=== PATIENT | male | born 1935 | race Caucasian/White ===

== ENCOUNTER 2022-04-26 15:12 | Inpatient (IN) ==
[2022-04-26] MEDS ORDERED: HYDROmorphone 1 MG/1 ML SYRINGE IV STA (15:22)
[2022-04-26] MEDS ORDERED: SODIUM CHLORIDE 0.9% 500 ML IV STA (15:22)
[2022-04-26] MEDS ORDERED: ONDANSETRON 4 MG/2 ML VIAL IV STA (15:22)
[2022-04-26 16:15] LABS: Albumin 3.8 G/DL (3.4-5.0); Bilirubin,Total 0.9 MG/DL (0.20-1.00); Calcium 8.8 MG/DL (8.5-10.1); Osmolality,Calculated 291.7 MOS/KG (273-304); Total Protein 6.8 G/DL (6.4-8.2)
[2022-04-26 16:20] LABS: INR 2.1; Partial Thromboplastin Time 26.5 SECS (23.7-32.9)
[2022-04-26 16:27] LABS: Basophils % 0.3 % (0.0-0.8); Eosinophils # 0.1 10*3/uL (0.0-0.87); Eosinophils % 1.7 % (0.00-10.9); Hematocrit 40.5 VOL% (42.0-52.0); Hemoglobin 13.2 GM/DL (14.0-18.0); Immature Granulocytes % 0.7 %; Immature Granulocytes Absolute 0.05 #; Lymphocytes # 1.1 10*3/uL (1.4-4.0); Lymphocytes % 14.4 % (21.2-54.2); Mean Corpuscular HGB Conc 32.6 GM/DL (32-36); Mean Corpuscular Volume 94.8 FL (87-102); Mean Platelet Volume 9.6 FL (9.6-12.0); Monocytes # 0.6 10*3/uL (0.11-0.8); Monocytes % 7.7 % (1.7-12.7); Neutrophils % 75.2 % (38.7-73.9); Platelet Count 155 T/CUMM (130-400); Red Blood Count 4.27 MC/CUMM (3.8-5.5); Red Cell Distribution Width 14.4 % (9.3-17.3); White Blood Count 7.58 T/CUMM (4-12)
[2022-04-26] MEDS ORDERED: ONDANSETRON 4 MG/2 ML VIAL IV PRN (16:46)
[2022-04-26] MEDS ORDERED: MORPHINE 2 MG/1 ML SYRINGE IV PRN (16:46)
[2022-04-26] MEDS ORDERED: DEXTROSE 10% 250 ML BAG IV PRN (16:46)
[2022-04-26] MEDS ORDERED: GLUCAGON 1 MG VIAL IM PRN (16:46)
[2022-04-26] MEDS ORDERED: ACETAMINOPHEN 325 MG TABLET PO PRN (16:46)
[2022-04-26] MEDS ORDERED: PHYTONADIONE 10 MG/1 ML AMP SUBCUT ONE (17:24)
[2022-04-26 18:24] LABS: Bilirubin,Urine Negative (Negative); Blood, Urine Trace mg/dL (Negative); Glucose,Urine (UA) 500 mg/dL (Negative); Ketones,Urine Negative (Negative); Nitrite,Urine Negative (Negative); Protein,Urine 30 mg/dL (Negative); Urine Appearance Clear (Clear); Urine Color Yellow (Yellow); Urine Urobilinogen 0.2 eU/dL (<2.0)
[2022-04-26 18:25] LABS: Mucus,Urine Occasional /LPF (Occasional); RBC,Urine 1 /HPF (0-4); Squamous Epithelial Cell,Urine Occasional /HPF (0-10)
[2022-04-26 18:55] LABS: Barbiturates Screen,Urine Negative (Negative); Benzodiazepines Screen,Urine Negative (Negative); Cannabinoid Screen,Urine Negative (Negative); Opiate Screen,Urine Positive (Negative); Phencyclidine Screen,Urine Negative (Negative)
[2022-04-26] MEDS: SODIUM CHLORIDE 0.9% 1,000 ML IV SCH (18:57)
[2022-04-27] MEDS: INSULIN LISPRO 100 UNIT/ML SUBCUT SCH ×5 (04:14→20:58)
[2022-04-27 04:57] LABS: Basophils % 0.3 % (0.0-0.8); Eosinophils # 0.2 10*3/uL (0.0-0.87); Eosinophils % 1.8 % (0.00-10.9); Hematocrit 38.1 VOL% (42.0-52.0); Hemoglobin 12.6 GM/DL (14.0-18.0); Immature Granulocytes % 0.4 %; Immature Granulocytes Absolute 0.04 #; Lymphocytes # 1.4 10*3/uL (1.4-4.0); Lymphocytes % 14.7 % (21.2-54.2); Mean Corpuscular HGB Conc 33.1 GM/DL (32-36); Mean Corpuscular Volume 95.5 FL (87-102); Mean Platelet Volume 10.2 FL (9.6-12.0); Monocytes # 0.9 10*3/uL (0.11-0.8); Monocytes % 9.9 % (1.7-12.7); Neutrophils % 72.9 % (38.7-73.9); Platelet Count 152 T/CUMM (130-400); Red Blood Count 3.99 MC/CUMM (3.8-5.5); Red Cell Distribution Width 14.3 % (9.3-17.3); White Blood Count 9.21 T/CUMM (4-12)
[2022-04-27 05:02] LABS: INR 1.7; PT Patient Result 17.6 SECS (10.1-12.1)
[2022-04-27 05:28] LABS: Albumin 3.2 G/DL (3.4-5.0); Bilirubin,Total 1.3 MG/DL (0.20-1.00); Calcium 8.1 MG/DL (8.5-10.1); Osmolality,Calculated 291.7 MOS/KG (273-304); Potassium 3.9 MMOL/L (3.5-5.1); Risk Ratio 2.29; Thyroid Stimulating Hormone 1.21 uIU/ml (0.358-3.74); Total Protein 5.7 G/DL (6.4-8.2); VLDL Cholesterol 14.6 MG/DL
[2022-04-27] MEDS ORDERED: ceFAZolin 2,000 MG/50 ML DUPLEX IV ONE (06:00)
[2022-04-27] MEDS: SODIUM CHLORIDE 0.9% 1,000 ML IV SCH ×2 (06:09→14:04)
[2022-04-27] MEDS ORDERED: ROCURONIUM 50 MG/5 ML VIAL IV ONE (09:06)
[2022-04-27] MEDS ORDERED: LIDOCAINE 2% 5 ML VIAL ONE (09:06)
[2022-04-27] MEDS ORDERED: ONDANSETRON 4 MG/2 ML VIAL ONE (09:06)
[2022-04-27] MEDS ORDERED: PHENYLEPHRINE 1 MG/10 ML SYRINGE IV ONE ×2 (09:06→10:29)
[2022-04-27] MEDS ORDERED: propofoL 200 MG/20 ML VIAL IV ONE (09:06)
[2022-04-27] MEDS ORDERED: MIDAZOLAM 2 MG/2 ML VIAL ONE (09:06)
[2022-04-27] MEDS ORDERED: fentaNYL 100 MCG/2 ML VIAL ONE (09:06)
[2022-04-27] MEDS ORDERED: SEVOFLURANE 1 UNIT/15 MINUTE INH ONE (09:06)
[2022-04-27] MEDS ORDERED: ROPIVACAINE 0.5% 30 ML VIAL ONE (09:14)
[2022-04-27] MEDS ORDERED: DEXAMETHASONE 4 MG/1 ML VIAL ONE (09:14)
[2022-04-27] MEDS ORDERED: SUCCINYLCHOLINE 200 MG/10 ML VIAL ONE (10:27)
[2022-04-27] MEDS ORDERED: BACITRACIN OINT 0.9 GM PACK TOP ONE (10:41)
[2022-04-27] MEDS ORDERED: LACTATED RINGERS 1,000 ML IV ONE (10:42)
[2022-04-27] MEDS ORDERED: MAGNESIUM HYDROXIDE SUSP 30 ML UDCUP PO PRN (10:56)
[2022-04-27] MEDS ORDERED: SODIUM CHLORIDE 0.9% 1,000 ML IV SCH (11:00)
[2022-04-27] MEDS: LACTATED RINGERS 1,000 ML IV SCH ×2 (13:56→21:10)
[2022-04-27] MEDS: allopurinoL 300 MG TABLET PO SCH (13:56)
[2022-04-27] MEDS: DAPAGLIFLOZIN 5 MG TABLET PO SCH (13:56)
[2022-04-27] MEDS: lisinopriL 10 MG TABLET PO SCH (13:56)
[2022-04-27] MEDS: ATORVASTATIN 40 MG TABLET PO SCH (13:56)
[2022-04-27] MEDS: ceFAZolin 2,000 MG/50 ML DUPLEX IV SCH (17:00)
[2022-04-27] MEDS: ASCORBIC ACID 500 MG TABLET PO SCH (20:58)
[2022-04-27] MEDS: DOCUSATE SODIUM 100 MG CAPSULE PO SCH (20:58)
[2022-04-28] MEDS: ceFAZolin 2,000 MG/50 ML DUPLEX IV SCH (00:18)
[2022-04-28 04:12] LABS: Basophils % 0.1 % (0.0-0.8); Eosinophils % 0.1 % (0.00-10.9); Hematocrit 38.6 VOL% (42.0-52.0); Hemoglobin 12.6 GM/DL (14.0-18.0); Immature Granulocytes % 0.9 %; Immature Granulocytes Absolute 0.13 #; Lymphocytes # 1.3 10*3/uL (1.4-4.0); Lymphocytes % 8.8 % (21.2-54.2); Mean Corpuscular HGB Conc 32.6 GM/DL (32-36); Mean Corpuscular Volume 95.8 FL (87-102); Mean Platelet Volume 10.1 FL (9.6-12.0); Monocytes # 1.3 10*3/uL (0.11-0.8); Monocytes % 8.7 % (1.7-12.7); Neutrophils % 81.4 % (38.7-73.9); Platelet Count 147 T/CUMM (130-400); Red Blood Count 4.03 MC/CUMM (3.8-5.5); Red Cell Distribution Width 14.2 % (9.3-17.3); White Blood Count 14.65 T/CUMM (4-12)
[2022-04-28 04:22] LABS: INR 1.3; PT Patient Result 13.9 SECS (10.1-12.1)
[2022-04-28 04:29] LABS: Calcium 8.4 MG/DL (8.5-10.1); Osmolality,Calculated 293.7 MOS/KG (273-304); Potassium 3.8 MMOL/L (3.5-5.1)
[2022-04-28] MEDS ORDERED: MAGNESIUM SULF RIDER 4 GM/100 ML PREMIX IV PRN (08:03)
[2022-04-28] MEDS ORDERED: MAGNESIUM SULF RIDER 2 GM/50 ML PREMIX IV PRN (08:03)
[2022-04-28] MEDS: INSULIN LISPRO 100 UNIT/ML SUBCUT SCH ×4 (08:57→20:39)
[2022-04-28] MEDS: allopurinoL 300 MG TABLET PO SCH ×2 (09:39→12:53)
[2022-04-28] MEDS: ASCORBIC ACID 500 MG TABLET PO SCH ×3 (09:39→20:36)
[2022-04-28] MEDS: lisinopriL 10 MG TABLET PO SCH ×2 (09:39→12:53)
[2022-04-28] MEDS: ATORVASTATIN 40 MG TABLET PO SCH ×2 (09:39→12:53)
[2022-04-28] MEDS: WARFARIN 7.5 MG TABLET PO SCH ×2 (09:39→12:53)
[2022-04-28] MEDS: DAPAGLIFLOZIN 5 MG TABLET PO SCH ×2 (09:39→12:53)
[2022-04-28] MEDS: DOCUSATE SODIUM 100 MG CAPSULE PO SCH ×3 (09:40→20:39)
[2022-04-28] MEDS ORDERED: VANCOMYCIN INJ 1,000 MG in SODIUM CHLORIDE 0.9% 250 ML IV ONE (10:16)
[2022-04-28] MEDS ORDERED: OLANZapine 10 MG VIAL IM ONE ×2 (10:17)
[2022-04-28] MEDS: OLANZapine 2.5 MG TABLET PO SCH (20:40)
[2022-04-28] MEDS ORDERED: LORazepam 2 MG/1 ML VIAL IV ONE (22:40)
[2022-04-29 05:15] LABS: Basophils % 0.3 % (0.0-0.8); Eosinophils # 0.4 10*3/uL (0.0-0.87); Eosinophils % 3.9 % (0.00-10.9); Hematocrit 35.6 VOL% (42.0-52.0); Hemoglobin 11.4 GM/DL (14.0-18.0); Immature Granulocytes % 0.6 %; Immature Granulocytes Absolute 0.06 #; Lymphocytes # 1.2 10*3/uL (1.4-4.0); Lymphocytes % 11.2 % (21.2-54.2); Mean Corpuscular Volume 95.7 FL (87-102); Mean Platelet Volume 9.7 FL (9.6-12.0); Monocytes # 1.1 10*3/uL (0.11-0.8); Platelet Count 146 T/CUMM (130-400); Red Blood Count 3.72 MC/CUMM (3.8-5.5); Red Cell Distribution Width 14.4 % (9.3-17.3); White Blood Count 10.72 T/CUMM (4-12)
[2022-04-29 05:30] LABS: Calcium 8.1 MG/DL (8.5-10.1); Osmolality,Calculated 295.4 MOS/KG (273-304); Potassium 3.7 MMOL/L (3.5-5.1)
[2022-04-29] MEDS: INSULIN LISPRO 100 UNIT/ML SUBCUT SCH ×4 (07:45→22:54)
[2022-04-29 08:57] LABS: PT Patient Result 11.2 SECS (10.1-12.1)
[2022-04-29] MEDS ORDERED: SODIUM CHLORIDE 0.45% 1,000 ML IV SCH (09:00)
[2022-04-29] MEDS: SODIUM CHLORIDE 0.45% 1,000 ML IV SCH (09:45)
[2022-04-29] MEDS: LACTATED RINGERS 1,000 ML IV SCH (12:35)
[2022-04-29] MEDS: DOCUSATE SODIUM 100 MG CAPSULE PO SCH ×2 (12:37→22:54)
[2022-04-29] MEDS: ATORVASTATIN 40 MG TABLET PO SCH (12:37)
[2022-04-29] MEDS: WARFARIN 7.5 MG TABLET PO SCH (12:37)
[2022-04-29] MEDS: DAPAGLIFLOZIN 5 MG TABLET PO SCH (12:37)
[2022-04-29] MEDS: allopurinoL 300 MG TABLET PO SCH (12:38)
[2022-04-29] MEDS: ASCORBIC ACID 500 MG TABLET PO SCH ×2 (12:38→22:54)
[2022-04-29] MEDS: lisinopriL 10 MG TABLET PO SCH (12:38)
[2022-04-29] MEDS: ENOXAPARIN 80 MG/0.8 ML SYRINGE SUBCUT SCH (13:55)
[2022-04-29] MEDS: OLANZapine 2.5 MG TABLET PO SCH (22:54)
[2022-04-30] MEDS: SODIUM CHLORIDE 0.45% 1,000 ML IV SCH ×3 (00:37→17:49)
[2022-04-30 04:48] LABS: Basophils % 0.4 % (0.0-0.8); Eosinophils # 0.4 10*3/uL (0.0-0.87); Eosinophils % 3.5 % (0.00-10.9); Hemoglobin 12.3 GM/DL (14.0-18.0); Immature Granulocytes % 0.4 %; Immature Granulocytes Absolute 0.04 #; Lymphocytes # 1.4 10*3/uL (1.4-4.0); Lymphocytes % 13.7 % (21.2-54.2); Mean Corpuscular HGB Conc 31.5 GM/DL (32-36); Mean Corpuscular Volume 97.5 FL (87-102); Mean Platelet Volume 9.8 FL (9.6-12.0); Monocytes # 1.3 10*3/uL (0.11-0.8); Monocytes % 12.7 % (1.7-12.7); Neutrophils % 69.3 % (38.7-73.9); Platelet Count 161 T/CUMM (130-400); Red Cell Distribution Width 14.5 % (9.3-17.3); White Blood Count 9.96 T/CUMM (4-12)
[2022-04-30 05:06] LABS: Calcium 8.2 MG/DL (8.5-10.1); Osmolality,Calculated 293.6 MOS/KG (273-304)
[2022-04-30 05:13] LABS: PT Patient Result 11.2 SECS (10.1-12.1)
[2022-04-30] MEDS: INSULIN LISPRO 100 UNIT/ML SUBCUT SCH ×4 (09:16→20:52)
[2022-04-30] MEDS: lisinopriL 10 MG TABLET PO SCH (10:55)
[2022-04-30] MEDS: DAPAGLIFLOZIN 5 MG TABLET PO SCH (10:55)
[2022-04-30] MEDS: WARFARIN 7.5 MG TABLET PO SCH (10:56)
[2022-04-30] MEDS: ATORVASTATIN 40 MG TABLET PO SCH (10:56)
[2022-04-30] MEDS: allopurinoL 300 MG TABLET PO SCH (10:56)
[2022-04-30] MEDS: ASCORBIC ACID 500 MG TABLET PO SCH ×2 (10:56→21:26)
[2022-04-30] MEDS: DOCUSATE SODIUM 100 MG CAPSULE PO SCH ×2 (10:56→21:26)
[2022-04-30] MEDS: ENOXAPARIN 80 MG/0.8 ML SYRINGE SUBCUT SCH (14:07)
[2022-04-30] MEDS: risperiDONE 1 MG TABLET PO SCH (21:32)
[2022-05-01 04:32] LABS: Basophils % 0.3 % (0.0-0.8); Eosinophils # 0.2 10*3/uL (0.0-0.87); Eosinophils % 2.6 % (0.00-10.9); Hematocrit 35.8 VOL% (42.0-52.0); Hemoglobin 11.5 GM/DL (14.0-18.0); Immature Granulocytes % 0.7 %; Immature Granulocytes Absolute 0.06 #; Lymphocytes # 1.7 10*3/uL (1.4-4.0); Mean Corpuscular HGB Conc 32.1 GM/DL (32-36); Mean Corpuscular Volume 97.3 FL (87-102); Mean Platelet Volume 9.9 FL (9.6-12.0); Monocytes # 1.1 10*3/uL (0.11-0.8); Monocytes % 12.2 % (1.7-12.7); Neutrophils % 65.2 % (38.7-73.9); Platelet Count 159 T/CUMM (130-400); Red Blood Count 3.68 MC/CUMM (3.8-5.5); Red Cell Distribution Width 14.3 % (9.3-17.3); White Blood Count 8.82 T/CUMM (4-12)
[2022-05-01 04:43] LABS: PT Patient Result 11.4 SECS (10.1-12.1)
[2022-05-01 05:10] LABS: Albumin 2.6 G/DL (3.4-5.0); Bilirubin,Direct 0.53 MG/DL (0.0-0.20); Bilirubin,Indirect 1.2 MG/DL (0.0-1.0); Bilirubin,Total 1.7 MG/DL (0.20-1.00); Calcium 8.1 MG/DL (8.5-10.1); Osmolality,Calculated 290.8 MOS/KG (273-304); Potassium 3.7 MMOL/L (3.5-5.1); Total Protein 5.5 G/DL (6.4-8.2)
[2022-05-01] MEDS: SODIUM CHLORIDE 0.45% 1,000 ML IV SCH ×2 (05:47→20:44)
[2022-05-01] MEDS: INSULIN LISPRO 100 UNIT/ML SUBCUT SCH ×4 (07:21→20:45)
[2022-05-01] MEDS ORDERED: TUBERCULIN SKIN TEST 0.1 ML SYRINGE INTRADERM ONE (08:30)
[2022-05-01] MEDS: DOCUSATE SODIUM 100 MG CAPSULE PO SCH ×2 (09:13→20:43)
[2022-05-01] MEDS: lisinopriL 10 MG TABLET PO SCH (09:14)
[2022-05-01] MEDS: WARFARIN 7.5 MG TABLET PO SCH (09:14)
[2022-05-01] MEDS: ASCORBIC ACID 500 MG TABLET PO SCH ×2 (09:14→20:43)
[2022-05-01] MEDS: allopurinoL 300 MG TABLET PO SCH (09:14)
[2022-05-01] MEDS: DAPAGLIFLOZIN 5 MG TABLET PO SCH (09:14)
[2022-05-01] MEDS: ATORVASTATIN 40 MG TABLET PO SCH (09:19)
[2022-05-01] MEDS: ENOXAPARIN 80 MG/0.8 ML SYRINGE SUBCUT SCH (13:15)
[2022-05-01] MEDS: PANTOPRAZOLE 40 MG TABLET PO SCH (13:15)
[2022-05-01] MEDS: risperiDONE 1 MG TABLET PO SCH (20:43)
[2022-05-02 04:30] LABS: Basophils % 0.4 % (0.0-0.8); Eosinophils # 0.3 10*3/uL (0.0-0.87); Eosinophils % 3.7 % (0.00-10.9); Hematocrit 35.2 VOL% (42.0-52.0); Hemoglobin 11.8 GM/DL (14.0-18.0); Immature Granulocytes % 0.4 %; Immature Granulocytes Absolute 0.03 #; Lymphocytes # 1.4 10*3/uL (1.4-4.0); Lymphocytes % 17.6 % (21.2-54.2); Mean Corpuscular HGB Conc 33.5 GM/DL (32-36); Mean Corpuscular Volume 95.4 FL (87-102); Mean Platelet Volume 9.8 FL (9.6-12.0); Monocytes # 0.8 10*3/uL (0.11-0.8); Monocytes % 10.1 % (1.7-12.7); Neutrophils % 67.8 % (38.7-73.9); Platelet Count 161 T/CUMM (130-400); Red Blood Count 3.69 MC/CUMM (3.8-5.5); Red Cell Distribution Width 14.3 % (9.3-17.3); White Blood Count 8.13 T/CUMM (4-12)
[2022-05-02 04:38] LABS: PT Patient Result 11.4 SECS (10.1-12.1)
[2022-05-02 04:55] LABS: Calcium 8.3 MG/DL (8.5-10.1); Potassium 3.5 MMOL/L (3.5-5.1)
[2022-05-02] MEDS: INSULIN LISPRO 100 UNIT/ML SUBCUT SCH ×4 (08:37→21:55)
[2022-05-02] MEDS: SODIUM CHLORIDE 0.45% 1,000 ML IV SCH (11:14)
[2022-05-02] MEDS: lisinopriL 20 MG TABLET PO SCH (11:14)
[2022-05-02] MEDS: PANTOPRAZOLE 40 MG TABLET PO SCH (11:14)
[2022-05-02] MEDS: DOCUSATE SODIUM 100 MG CAPSULE PO SCH ×2 (11:14→21:57)
[2022-05-02] MEDS: WARFARIN 7.5 MG TABLET PO SCH (11:14)
[2022-05-02] MEDS: ATORVASTATIN 40 MG TABLET PO SCH (11:14)
[2022-05-02] MEDS: DAPAGLIFLOZIN 5 MG TABLET PO SCH (11:14)
[2022-05-02] MEDS: allopurinoL 300 MG TABLET PO SCH (11:15)
[2022-05-02] MEDS: ASCORBIC ACID 500 MG TABLET PO SCH ×2 (11:15→21:57)
[2022-05-02] MEDS: ENOXAPARIN 80 MG/0.8 ML SYRINGE SUBCUT SCH (15:23)
[2022-05-02] MEDS: risperiDONE 1 MG TABLET PO SCH (21:57)
[2022-05-03 04:59] LABS: Basophils % 0.4 % (0.0-0.8); Eosinophils # 0.4 10*3/uL (0.0-0.87); Eosinophils % 5.2 % (0.00-10.9); Hematocrit 34.5 VOL% (42.0-52.0); Hemoglobin 11.3 GM/DL (14.0-18.0); Immature Granulocytes % 0.5 %; Immature Granulocytes Absolute 0.04 #; Lymphocytes # 1.1 10*3/uL (1.4-4.0); Lymphocytes % 13.4 % (21.2-54.2); Mean Corpuscular HGB Conc 32.8 GM/DL (32-36); Mean Corpuscular Volume 95.6 FL (87-102); Mean Platelet Volume 9.9 FL (9.6-12.0); Monocytes # 0.8 10*3/uL (0.11-0.8); Monocytes % 9.7 % (1.7-12.7); Neutrophils % 70.8 % (38.7-73.9); Platelet Count 164 T/CUMM (130-400); Red Blood Count 3.61 MC/CUMM (3.8-5.5); Red Cell Distribution Width 14.1 % (9.3-17.3); White Blood Count 8.04 T/CUMM (4-12)
[2022-05-03] MEDS: SODIUM CHLORIDE 0.45% 1,000 ML IV SCH ×2 (05:08→18:23)
[2022-05-03 05:16] LABS: INR 1.1; PT Patient Result 11.8 SECS (10.1-12.1)
[2022-05-03 05:18] LABS: Calcium 8.3 MG/DL (8.5-10.1); Osmolality,Calculated 280.4 MOS/KG (273-304); Potassium 3.6 MMOL/L (3.5-5.1)
[2022-05-03] MEDS: lisinopriL 20 MG TABLET PO SCH (09:38)
[2022-05-03] MEDS: allopurinoL 300 MG TABLET PO SCH (09:38)
[2022-05-03] MEDS: DAPAGLIFLOZIN 5 MG TABLET PO SCH (09:38)
[2022-05-03] MEDS: ATORVASTATIN 40 MG TABLET PO SCH (09:38)
[2022-05-03] MEDS: PANTOPRAZOLE 40 MG TABLET PO SCH (09:38)
[2022-05-03] MEDS: ASCORBIC ACID 500 MG TABLET PO SCH ×2 (09:38→21:25)
[2022-05-03] MEDS: DOCUSATE SODIUM 100 MG CAPSULE PO SCH ×2 (09:38→21:25)
[2022-05-03] MEDS: WARFARIN 7.5 MG TABLET PO SCH (09:38)
[2022-05-03] MEDS: INSULIN LISPRO 100 UNIT/ML SUBCUT SCH ×4 (09:39→20:59)
[2022-05-03] MEDS: ENOXAPARIN 80 MG/0.8 ML SYRINGE SUBCUT SCH (13:38)
[2022-05-03] MEDS: risperiDONE 1 MG TABLET PO SCH (21:27)
[2022-05-04 04:19] LABS: Basophils % 0.3 % (0.0-0.8); Eosinophils # 0.4 10*3/uL (0.0-0.87); Eosinophils % 5.6 % (0.00-10.9); Hematocrit 31.9 VOL% (42.0-52.0); Hemoglobin 10.5 GM/DL (14.0-18.0); Immature Granulocytes % 0.8 %; Immature Granulocytes Absolute 0.06 #; Lymphocytes # 0.8 10*3/uL (1.4-4.0); Mean Corpuscular HGB Conc 32.9 GM/DL (32-36); Mean Corpuscular Volume 94.7 FL (87-102); Mean Platelet Volume 10.1 FL (9.6-12.0); Monocytes # 0.7 10*3/uL (0.11-0.8); Monocytes % 9.5 % (1.7-12.7); Neutrophils % 72.8 % (38.7-73.9); Platelet Count 192 T/CUMM (130-400); Red Blood Count 3.37 MC/CUMM (3.8-5.5); White Blood Count 7.15 T/CUMM (4-12)
[2022-05-04 04:27] LABS: INR 1.1; PT Patient Result 12.3 SECS (10.1-12.1)
[2022-05-04 04:44] LABS: Calcium 7.4 MG/DL (8.5-10.1); Osmolality,Calculated 283.4 MOS/KG (273-304); Potassium 3.4 MMOL/L (3.5-5.1)
[2022-05-04] MEDS: ASCORBIC ACID 500 MG TABLET PO SCH ×2 (10:23→21:46)
[2022-05-04] MEDS: PANTOPRAZOLE 40 MG TABLET PO SCH (10:23)
[2022-05-04] MEDS: DAPAGLIFLOZIN 5 MG TABLET PO SCH (10:23)
[2022-05-04] MEDS: DOCUSATE SODIUM 100 MG CAPSULE PO SCH ×2 (10:23→21:46)
[2022-05-04] MEDS: ATORVASTATIN 40 MG TABLET PO SCH (10:24)
[2022-05-04] MEDS: lisinopriL 20 MG TABLET PO SCH (10:24)
[2022-05-04] MEDS: WARFARIN 7.5 MG TABLET PO SCH (10:24)
[2022-05-04] MEDS: allopurinoL 300 MG TABLET PO SCH (10:27)
[2022-05-04] MEDS ORDERED: DONEPEZIL 5 MG TABLET PO ONE (11:07)
[2022-05-04] MEDS ORDERED: POTASSIUM CHLORIDE 20 MEQ TABLET PO ONE (11:22)
[2022-05-04] MEDS ORDERED: MAGNESIUM SULF RIDER 2 GM/50 ML PREMIX IV ONE (11:22)
[2022-05-04] MEDS: SODIUM CHLORIDE 0.45% 1,000 ML IV SCH ×2 (11:51→17:25)
[2022-05-04] MEDS ORDERED: LORazepam 1 MG TABLET PO ONE (13:23)
[2022-05-04] MEDS: INSULIN LISPRO 100 UNIT/ML SUBCUT SCH ×4 (14:25→21:47)
[2022-05-04] MEDS: ENOXAPARIN 80 MG/0.8 ML SYRINGE SUBCUT SCH (14:54)
[2022-05-04] MEDS ORDERED: DONEPEZIL 5 MG TABLET PO SCH (21:00)
[2022-05-04] MEDS: risperiDONE 1 MG TABLET PO SCH (21:46)
[2022-05-05] MEDS: SODIUM CHLORIDE 0.45% 1,000 ML IV SCH ×2 (05:09→09:44)
[2022-05-05] MEDS: INSULIN LISPRO 100 UNIT/ML SUBCUT SCH (09:23)
[2022-05-05] MEDS: PANTOPRAZOLE 40 MG TABLET PO SCH (09:36)
[2022-05-05] MEDS: DAPAGLIFLOZIN 5 MG TABLET PO SCH (09:36)
[2022-05-05] MEDS: WARFARIN 7.5 MG TABLET PO SCH (09:36)
[2022-05-05] MEDS: ATORVASTATIN 40 MG TABLET PO SCH (09:37)
[2022-05-05] MEDS: DOCUSATE SODIUM 100 MG CAPSULE PO SCH (09:37)
[2022-05-05] MEDS: allopurinoL 300 MG TABLET PO SCH (09:37)
[2022-05-05] MEDS: ASCORBIC ACID 500 MG TABLET PO SCH (09:37)
[2022-05-05] MEDS: lisinopriL 20 MG TABLET PO SCH (09:37)
[2022-05-05 12:13] VITALS: BP 126/66
== END 2022-05-05 13:40 | DRG 481 ==
LOC: N.ED 15:12 → SUATTDRO 16:46 → N.EDINP 16:46 → N.TELEN 21:15
PROVIDERS: ADMIT Internal Medicine; ATTEND Internal Medicine